=== PATIENT | male | born 1975 | race African-American/Black ===

== ENCOUNTER 2025-04-07 01:04 | Emergency (ER) | payer SELFPAY ==
[2025-04-07 01:52] LABS: #Basophils 0.05 10x3/uL (0.0-0.2); #Eosinophils 0.34 10x3/uL (0.0-0.7); #Monocytes 1.49 10x3/uL (0.11-0.59); #Neutrophils 4.71 10x3/uL (1.40-6.50); %Basophils 0.5 % (0.0-1.0); %Eosinophils 3.7 % (0.0-10.0); %Lymphocytes 27.4 % (21.0-51.0); %Monocytes 16.4 % (0.0-10.0); %Neutrophils 51.8 % (42.0-75.0); Hematocrit 42.5 % (42.0-52.0); Hemoglobin 14.3 g/dL (14.0-18.0); Mean Corpuscular Hemoglobin 28.9 pg (27.0-31.0); Mean Corpuscular Volume 85.9 fL (78.0-98.0); Platelet Count 321 10x3/uL (130-400); Red Blood Cell (RBC) Count 4.95 mill/uL (4.70-6.10); White Blood Cell (WBC) Count 9.10 10x3/uL (4.8-10.8)
[2025-04-07 02:12] LABS: ALT (SGPT) 82 U/L (Less than 45); AST (SGOT) 57 U/L (11-34); Albumin 3.2 g/dL (3.1-4.5); Alkaline Phosphatase 99 U/L (40-110); Anion Gap 13 mmol/L (10-20); BUN (Urea Nitrogen) 12 mg/dL (8.9-20.6); Bilirubin, Total 0.7 mg/dL (0.3-1.2); Calc. Creatinine Clearance 0 mL/min (70-130); Calcium 8.4 mg/dL (7.8-10.44); Carbon Dioxide 21 mmol/L (22-29); Chloride 108 mmol/L (98-107); Globulin 3.7 g/dL (2.4-3.5); Glucose 111 mg/dL (70-105); Potassium 3.7 mmol/L (3.5-5.1); Sodium 138 mmol/L (136-145)
[2025-04-07] MEDS ORDERED: Ketorolac Tromethamine 30 MG (1 mL) VIAL ONE (02:40)
== END 2025-04-07 04:35 | disposition home or self-care (01) ==
LOC: ERS 01:04
DX: B34.9 Viral infection, unspecified (principal); I25.2 Old myocardial infarction
CPT/HCPCS: 71045; 80053; 83880; 84145; 84484; 85025; 87428; 93005; 96374; J1885

== ENCOUNTER 2025-07-06 21:03 | Inpatient (IN) | payer OTHER, SELFPAY ==
[2025-07-06 23:40] LABS: #Basophils 0.04 10x3/uL (0.0-0.2); #Eosinophils 0.21 10x3/uL (0.0-0.7); #Monocytes 0.81 10x3/uL (0.11-0.59); #Neutrophils 2.41 10x3/uL (1.40-6.50); %Basophils 0.7 % (0.0-1.0); %Eosinophils 3.7 % (0.0-10.0); %Lymphocytes 39.4 % (21.0-51.0); %Monocytes 14.1 % (0.0-10.0); %Neutrophils 41.9 % (42.0-75.0); Hematocrit 42.6 % (42.0-52.0); Hemoglobin 13.7 g/dL (14.0-18.0); Mean Corpuscular Hemoglobin 28.7 pg (27.0-31.0); Mean Corpuscular Volume 89.1 fL (78.0-98.0); Platelet Count 271 10x3/uL (130-400); Red Blood Cell (RBC) Count 4.78 mill/uL (4.70-6.10); White Blood Cell (WBC) Count 5.74 10x3/uL (4.8-10.8)
[2025-07-06 23:52] LABS: ALT (SGPT) 101 U/L (Less than 45); AST (SGOT) 97 U/L (11-34); Albumin 3.3 g/dL (3.1-4.5); Alkaline Phosphatase 117 U/L (40-110); Anion Gap 13 mmol/L (10-20); BUN (Urea Nitrogen) 12 mg/dL (8.9-20.6); Bilirubin, Total 1.4 mg/dL (0.3-1.2); Calc. Creatinine Clearance 0 mL/min (70-130); Calcium 8.5 mg/dL (7.8-10.44); Carbon Dioxide 17 mmol/L (22-29); Chloride 111 mmol/L (98-107); Globulin 3.5 g/dL (2.4-3.5); Glucose 115 mg/dL (70-105); Potassium 3.9 mmol/L (3.5-5.1); Sodium 137 mmol/L (136-145)
[2025-07-07] MEDS ORDERED: Furosemide 40 MG (4 mL) VIAL ONE ×2 (01:37→07:01)
[2025-07-07] MEDS ORDERED: Guaifenesin DM 100-10/5 ML UDCUP PO PRN (03:37)
[2025-07-07] MEDS ORDERED: Acetaminophen 325 MG TAB PO PRN (03:37)
[2025-07-07] MEDS ORDERED: Calcium Carbonate 500 MG ChewTAB PO PRN (03:37)
[2025-07-07] MEDS: Furosemide 40 MG (4 mL) VIAL SLOW IVP SCH (07:03)
[2025-07-07] MEDS ORDERED: Aspirin 81 mg Enteric Coated Tablet ONE (08:19)
[2025-07-07] MEDS ORDERED: Enoxaparin 40 MG (0.4 mL) SYRINGE ONE (08:21)
[2025-07-07] MEDS ORDERED: Lisinopril 5 MG TAB ONE (08:21)
[2025-07-07] MEDS: Lisinopril 5 MG TAB PO SCH (08:49)
[2025-07-07] MEDS: Spironolactone 25 MG TAB PO SCH (08:49)
[2025-07-07] MEDS: Enoxaparin 40 MG (0.4 mL) SYRINGE SC SCH ×2 (08:50→20:26)
[2025-07-07] MEDS: Aspirin 81 mg Enteric Coated Tablet PO SCH (08:50)
[2025-07-07] MEDS: Metoprolol Succinate XL 25 MG ER.TAB PO SCH (10:32)
[2025-07-07] MEDS ORDERED: Iopamidol-370 76% 500 ML MDV (1 ML CHARGE) ONE (11:12)
[2025-07-07 13:35] LABS: Anion Gap 13 mmol/L (10-20); BUN (Urea Nitrogen) 11 mg/dL (8.9-20.6); Calc. Creatinine Clearance 255 mL/min (70-130); Calcium 9.2 mg/dL (7.8-10.44); Carbon Dioxide 24 mmol/L (22-29); Chloride 108 mmol/L (98-107); Glucose 97 mg/dL (70-105); Magnesium 1.5 mg/dL (1.6-2.6); Potassium 4.0 mmol/L (3.5-5.1); Sodium 141 mmol/L (136-145)
[2025-07-07] MEDS: Magnesium Sulfate In Water 4 GM in Premix 1 BAG IVPB SCH (15:45)
[2025-07-08 04:35] LABS: #Basophils 0.05 10x3/uL (0.0-0.2); #Eosinophils 0.25 10x3/uL (0.0-0.7); #Monocytes 0.97 10x3/uL (0.11-0.59); #Neutrophils 2.52 10x3/uL (1.40-6.50); %Basophils 0.9 % (0.0-1.0); %Eosinophils 4.3 % (0.0-10.0); %Lymphocytes 34.4 % (21.0-51.0); %Monocytes 16.7 % (0.0-10.0); %Neutrophils 43.4 % (42.0-75.0); Hematocrit 40.8 % (42.0-52.0); Hemoglobin 13.5 g/dL (14.0-18.0); Mean Corpuscular Hemoglobin 29.0 pg (27.0-31.0); Mean Corpuscular Volume 87.6 fL (78.0-98.0); Platelet Count 285 10x3/uL (130-400); Red Blood Cell (RBC) Count 4.66 mill/uL (4.70-6.10); White Blood Cell (WBC) Count 5.81 10x3/uL (4.8-10.8)
[2025-07-08 04:51] LABS: ALT (SGPT) 93 U/L (Less than 45); AST (SGOT) 87 U/L (11-34); Albumin 3.1 g/dL (3.1-4.5); Alkaline Phosphatase 112 U/L (40-110); Anion Gap 14 mmol/L (10-20); BUN (Urea Nitrogen) 11 mg/dL (8.9-20.6); Bilirubin, Total 1.6 mg/dL (0.3-1.2); Calc. Creatinine Clearance 250 mL/min (70-130); Calcium 8.8 mg/dL (7.8-10.44); Carbon Dioxide 22 mmol/L (22-29); Chloride 106 mmol/L (98-107); Globulin 3.1 g/dL (2.4-3.5); Glucose 85 mg/dL (70-105); Magnesium 1.6 mg/dL (1.6-2.6); Potassium 3.8 mmol/L (3.5-5.1); Sodium 138 mmol/L (136-145)
[2025-07-08] MEDS: Magnesium Sulfate In Water 4 GM in Premix 1 BAG IVPB SCH (09:17)
[2025-07-08] MEDS: Apixaban 5 MG TAB PO SCH (18:38)
[2025-07-09 04:36] LABS: Anion Gap 11 mmol/L (10-20); BUN (Urea Nitrogen) 12 mg/dL (8.9-20.6); Calc. Creatinine Clearance 221 mL/min (70-130); Calcium 8.8 mg/dL (7.8-10.44); Carbon Dioxide 27 mmol/L (22-29); Chloride 104 mmol/L (98-107); Glucose 80 mg/dL (70-105); Magnesium 1.5 mg/dL (1.6-2.6); Potassium 3.8 mmol/L (3.5-5.1); Sodium 138 mmol/L (136-145)
[2025-07-09] MEDS: Magnesium Sulfate In Water 4 GM in Premix 1 BAG IVPB SCH (08:23)
[2025-07-09] MEDS: Dapagliflozin Propanediol 10 MG TAB PO SCH (08:24)
[2025-07-09] MEDS: Apixaban 5 MG TAB PO SCH (08:26)
[2025-07-09] MEDS: Sacubitril 24MG/Valsartan 26 MG TAB PO SCH (21:21)
[2025-07-10 05:13] LABS: ALT (SGPT) 116 U/L (Less than 45); AST (SGOT) 123 U/L (11-34); Albumin 3.3 g/dL (3.1-4.5); Alkaline Phosphatase 131 U/L (40-110); Anion Gap 13 mmol/L (10-20); BUN (Urea Nitrogen) 13 mg/dL (8.9-20.6); Bilirubin, Total 1.2 mg/dL (0.3-1.2); Calc. Creatinine Clearance 192 mL/min (70-130); Calcium 9.1 mg/dL (7.8-10.44); Carbon Dioxide 25 mmol/L (22-29); Chloride 103 mmol/L (98-107); Globulin 3.5 g/dL (2.4-3.5); Glucose 96 mg/dL (70-105); Magnesium 1.6 mg/dL (1.6-2.6); Potassium 3.9 mmol/L (3.5-5.1); Sodium 137 mmol/L (136-145)
[2025-07-10] MEDS: Magnesium Sulfate In Water 4 GM in Premix 1 BAG IVPB SCH (12:41)
[2025-07-11 05:57] LABS: #Basophils 0.07 10x3/uL (0.0-0.2); #Eosinophils 0.26 10x3/uL (0.0-0.7); #Monocytes 0.99 10x3/uL (0.11-0.59); #Neutrophils 2.09 10x3/uL (1.40-6.50); %Basophils 1.3 % (0.0-1.0); %Eosinophils 4.7 % (0.0-10.0); %Lymphocytes 37.0 % (21.0-51.0); %Monocytes 18.1 % (0.0-10.0); %Neutrophils 38.2 % (42.0-75.0); Hematocrit 47.9 % (42.0-52.0); Hemoglobin 16.0 g/dL (14.0-18.0); Mean Corpuscular Hemoglobin 29.1 pg (27.0-31.0); Mean Corpuscular Volume 87.1 fL (78.0-98.0); Platelet Count 362 10x3/uL (130-400); Red Blood Cell (RBC) Count 5.50 mill/uL (4.70-6.10); White Blood Cell (WBC) Count 5.48 10x3/uL (4.8-10.8)
[2025-07-11 06:24] LABS: Anion Gap 15 mmol/L (10-20); BUN (Urea Nitrogen) 14 mg/dL (8.9-20.6); Calc. Creatinine Clearance 211 mL/min (70-130); Calcium 9.2 mg/dL (7.8-10.44); Carbon Dioxide 21 mmol/L (22-29); Chloride 106 mmol/L (98-107); Glucose 105 mg/dL (70-105); Magnesium 1.8 mg/dL (1.6-2.6); Potassium 4.4 mmol/L (3.5-5.1); Sodium 138 mmol/L (136-145)
[2025-07-11] MEDS: Magnesium 2 GM/50 ML(in water) 2 GM in Premix 1 BAG IVPB SCH (15:20)
[2025-07-13 07:21] LABS: #Basophils 0.05 10x3/uL (0.0-0.2); #Eosinophils 0.22 10x3/uL (0.0-0.7); #Monocytes 0.78 10x3/uL (0.11-0.59); #Neutrophils 1.53 10x3/uL (1.40-6.50); %Basophils 1.0 % (0.0-1.0); %Eosinophils 4.6 % (0.0-10.0); %Lymphocytes 45.7 % (21.0-51.0); %Monocytes 16.3 % (0.0-10.0); %Neutrophils 32.0 % (42.0-75.0); Hematocrit 51.4 % (42.0-52.0); Hemoglobin 17.3 g/dL (14.0-18.0); Mean Corpuscular Hemoglobin 29.3 pg (27.0-31.0); Mean Corpuscular Volume 87.0 fL (78.0-98.0); Platelet Count 348 10x3/uL (130-400); Red Blood Cell (RBC) Count 5.91 mill/uL (4.70-6.10); White Blood Cell (WBC) Count 4.79 10x3/uL (4.8-10.8)
[2025-07-13 07:35] LABS: Anion Gap 15 mmol/L (10-20); BUN (Urea Nitrogen) 14 mg/dL (8.9-20.6); Calc. Creatinine Clearance 190 mL/min (70-130); Calcium 9.3 mg/dL (7.8-10.44); Carbon Dioxide 24 mmol/L (22-29); Chloride 101 mmol/L (98-107); Glucose 95 mg/dL (70-105); Magnesium 1.6 mg/dL (1.6-2.6); Potassium 4.3 mmol/L (3.5-5.1); Sodium 136 mmol/L (136-145)
[2025-07-13 23:54] VITALS: BMI 43.9
[2025-07-14 05:51] VITALS: BMI 43.7
[2025-07-14] MEDS: Magnesium Oxide 400 MG TAB PO SCH (09:24)
[2025-07-14 11:38] VITALS: BP 110/76; TEMP 97.2
== END 2025-07-14 14:45 | disposition home or self-care (01) | DRG 291 ==
LOC: ERS 21:03 → ERHOLD 07-07 03:37 → 2NO 07-07 12:41 → OBSVTOIN 07-08 13:17
PROVIDERS: ADMIT Internal Medicine; ATTEND Student in an Organized Health Care Education/Training Program
DX: I11.0 Hypertensive heart disease with heart failure (principal); I50.43 Acute on chronic combined systolic (congestive) and diastolic (congestive) heart failure; Z68.41 Body mass index [BMI] 40.0-44.9, adult; Z98.890 Other specified postprocedural states; Z87.891 Personal history of nicotine dependence; E78.5 Hyperlipidemia, unspecified; I25.2 Old myocardial infarction; Z79.899 Other long term (current) drug therapy; I25.10 Atherosclerotic heart disease of native coronary artery without angina pectoris; E87.6 Hypokalemia; E83.42 Hypomagnesemia; E66.01 Morbid (severe) obesity due to excess calories; I25.5 Ischemic cardiomyopathy; I08.3 Combined rheumatic disorders of mitral, aortic and tricuspid valves; G47.33 Obstructive sleep apnea (adult) (pediatric); R59.0 Localized enlarged lymph nodes; Z79.82 Long term (current) use of aspirin; Z95.5 Presence of coronary angioplasty implant and graft; K76.1 Chronic passive congestion of liver
CPT/HCPCS: 36415; 36416; 71045; 71275; 80048; 80053; 83735; 83880; 84484; 85025; 85379; 93005; 93306; 93798; 96372; 96374; 96375; 96376; 97139; G0378; J1650; J1940; J3475; Q9967